=== PATIENT | female | born 1970 | race African-American/Black ===

== ENCOUNTER 2017-12-31 16:45 | Observation (INO) | payer OTHER, SELFPAY ==
[2017-12-31] MEDS ORDERED: Nitroglycerin 2% Ointment 1 INCH/1 GM Packet ONE (20:26)
[2017-12-31] MEDS ORDERED: Acetaminophen 500 MG TAB ONE (20:26)
--- NOTE | 2017-12-31 21:05 | RAD ---
RADIOGRAPH CHEST 1 VIEW: 12/31/17 HISTORY: 47-year-old female with acute chest pain. FINDINGS: There is no air space density, pulmonary edema, or pneumothorax. The lateral costophrenic angles are sharp. IMPRESSION: No acute pulmonary findings. jn [] POS: CARSON
[2017-12-31 21:12] LABS: #Basophils 0.1 thou/uL (0.0-0.2); #Eosinphils 0.1 thou/uL (0.0-0.7); #Lymphocytes 2.7 thou/uL (1.20-3.40); #Monocytes 0.5 thou/uL (0.11-0.59); %Basophils 0.7 % (0.0-1.0); %Eosinophils 1.4 % (0.0-10.0); %Lymphocytes 36.5 % (21.0-51.0); %Monocytes 7.3 % (0.0-10.0); %Neutrophils 54.1 % (42.0-75.0); Hemoglobin 12.8 g/dL (12.0-16.0); Mean Corpuscular HGB CONC 33.3 g/dL (32.0-36.0); Mean Corpuscular Hemoglobin 28.9 pg (27.0-31.0); Mean Corpuscular Volume 86.9 fl (81.0-99.0); Mean Platelet Volume 7.6 fL (7.4-10.4); Platelet Count 223 thou/uL (130-400); RBC Distribution Width 11.3 % (11.5-14.5); Red Blood Cell (RBC) Count 4.42 mill/uL (4.20-5.40); White Blood Cell (WBC) Count 7.4 thou/uL (4.8-10.8)
[2017-12-31 21:31] LABS: ALT (SGPT) 37 U/L (8-55); AST (SGOT) 24 U/L (5-34); Albumin 4.3 g/dL (3.5-5.0); Alkaline Phosphatase 73 U/L (40-150); Anion Gap 12 mmol/L (10-20); BUN (Urea Nitrogen) 12 mg/dL (7.0-18.7); Bilirubin, Total 0.4 mg/dL (0.2-1.2); CK (CPK) 152 U/L (29-168); Calc. Creatinine Clearance 0 mL/min (70-130); Calcium 9.5 mg/dL (7.8-10.44); Carbon Dioxide 25 mmol/L (22-29); Chloride 104 mmol/L (98-107); Estimated GFR-MDRD Greater than 90; Globulin 3.5 g/dL (2.4-3.5); Glucose 99 mg/dL (70-105); Lipase 22 U/L (8-78); Potassium 3.6 mmol/L (3.5-5.1); Protein, Total 7.8 g/dL (6.0-8.3); Sodium 137 mmol/L (136-145)
[2017-12-31 21:35] LABS: CKMB 1.7 ng/mL (0-6.6); Troponin I Less than 0.010 ng/mL (< 0.028)
[2017-12-31 22:27] LABS: Bilirubin Negative (Negative); Blood, Urine Trace (Negative); Clarity CLEAR (Clear); Glucose, Urine (Dipstick) Negative (Negative); Leukocyte Negative (Negative); Nitrite Negative (Negative); Protein, Urine (Dipstick) Negative (Neg-Trace); Specific Gravity, Urine 1.007 (1.002-1.036); Urobilinogen 0.2 mg/dL (0.2-1.0); pH, Urine 7.5 (5.0-9.0)
[2017-12-31 22:29] LABS: Bacteria/HPF None Seen HPF (None Seen); Hyaline Casts/LPF 0-3 HYALINE CAST LPF (0-3 Hyaline); RBC/HPF 0-3 HPF (0-3); Squamous Epithelial 0-3 HPF (0-3); WBC/HPF 0-3 HPF (0-3)
[2018-01-01] MEDS ORDERED: Acetaminophen 325 MG TAB PO PRN (00:04)
[2018-01-01] MEDS ORDERED: Ondansetron HCl/PF 4 MG/2 ML Vial IVP PRN (00:04)
[2018-01-01] MEDS ORDERED: Ondansetron ODT 4 MG TAB SL PRN (00:04)
[2018-01-01 00:40] LABS: Troponin I Less than 0.010 ng/mL (< 0.028)
[2018-01-01 00:53] VITALS: BMI 35.0
[2018-01-01 03:54] LABS: Troponin I Less than 0.010 ng/mL (< 0.028)
[2018-01-01] MEDS ORDERED: Nitroglycerin 0.4 MG TAB (25 Tab Bottle) PO PRN (08:33)
[2018-01-01] MEDS ORDERED: Topiramate 25 MG TAB PO SCH (09:00)
[2018-01-01] MEDS ORDERED: Aspirin 325 MG TAB PO SCH (09:00)
--- NOTE | 2018-01-01 09:42 | HP ---
DATE OF ADMISSION: 12/31/2017 HISTORY OF PRESENT ILLNESS: This is a 47-year-old black female with a history of uncontrolled hypert ension and migraines. She presents with a left substernal chest pain radiating to her left shoulder and left arm. This patient states she has had this off and on for the past several months. It becam e markedly more severe on Friday and has become progressively worse. On the past 2 days, this has be en associated with nausea, vomiting, and chest discomfort. She becomes diaphoretic. She was evaluat ed in the emergency room and a workup was negative. She has been followed by me over the past year a nd she has had difficult to control blood pressure. She is presently on 4 antihypertensive medicatio ns. PAST MEDICAL HISTORY: Hypertension, migraines, and PCOS. ALLERGIES: None. MEDICATIONS: Topamax 50 b.i.d., metoprolol 100 at bedtime, losartan HCT 100/25 p.o. q.a.m., amlodipi ne 10 mg at bedtime, hydralazine 25 t.i.d., Prilosec 40 daily, Flonase daily. PAST SURGICAL HISTORY: Laparoscopic cholecystectomy 05/2016. SOCIAL HISTORY: She is a nonsmoker, does not drink alcohol. 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 She is . She has no children. She admits to very poor diet. REVIEW OF SYSTEMS: As above. PHYSICAL EXAMINATION: VITAL SIGNS: Temperature 98.3, pulse 70, respirations 16, pulse ox 95, blood pressure 172/83. GENERAL: In no acute distress at this time. HEENT: Clear. HEART: Regular rate and rhythm. LUNGS: Clear. ABDOMEN: Soft. EXTREMITIES: With no edema. LABORATORY DATA: Electrolytes normal. Creatinine 0.72, BUN 12. Troponin less than 0.010 x3. BNP l ess than 10. Lipase 22. White count 10.4, H and H 12 and 38, platelet 223. Urine negative. ASSESSMENT: 1. Chest pain, substernal, radiating to left upper extremity. 2. Uncontrolled hypertension. 3. Poor diet. 4. Obesity. 5. Migraines. 6. History of polycystic ovary syndrome. PLAN: 1. Echo and Cardiolite stress test. 2. We will consult Dr. Diez. She is scheduled to see him in the next several weeks. 3. Discussed diet and exercise at length. I have been discussing this over the past year with the swapna royal.
[2018-01-01] MEDS ORDERED: Amlodipine 5 MG TAB PO SCH ×2 (09:45→21:00)
[2018-01-01] MEDS ORDERED: Amlodipine 10 MG TAB PO SCH (09:45)
--- NOTE | 2018-01-01 10:50 | CON ---
DATE OF CONSULTATION: 01/01/2018 REASON FOR CONSULTATION: Chest pain. HISTORY OF PRESENT ILLNESS: Ms. Matthews is a 47-year-old female with a history of hypertension and di abetes, admitted with chest pain. The patient states that yesterday she had the onset of pain in the middle of her chest, it was central substernal later she had some weakness and pain and tingling and numbness in the left arm. She came to the hospital. EKG did not show any ischemic changes. Tropon in levels have been negative. She has had a couple days prior to that she had a similar episode, but not as severe. PAST MEDICAL HISTORY: 1. She has a long history of hypertension at times has been difficult to control. 2. Mild diabetes. "She is on metformin only." 3. No history of smoking. FAMILY HISTORY: Negative for heart disease at a young age. MEDICATIONS: 1. Prior to admission, metformin 500 mg twice a day. 2. Topamax. 3. Omeprazole 40 mg a day. 4. Metoprolol 50 mg at bedtime. 5. Amlodipine 5 mg at bedtime. REVIEW OF SYSTEMS: CONSTITUTIONAL: No significant weight gain or loss. VISION: No changes. HEARING: No changes. PULMONARY: No cough or wheezing. GASTROINTESTINAL: No nausea, vomiting, or diarrhea. SKIN: No rashes. NEUROLOGIC: No unilateral weakness or numbness. PSYCHIATRIC: No unusual depression or anxiety. HEMATOLOGIC: No unusual bruising. GENITOURINARY: No burning with urination. Patient generalized does have daytime sleepiness and fatigue. She says her fiance told her that she snores. Her symptoms are compatible sleep apnea. PHYSICAL EXAMINATION: GENERAL: A pleasant patient, she is 5 foot 2 inches tall, 191 pounds. BMI 35. VITAL SIGNS: The blood pressure 172/83, pulse 70 regular. HEENT: Eyes: Sclerae nonicteric. Mouth: Mucous membranes moist. NECK: Supple, no lymphadenopathy. LUNGS: Clear, no wheezing, rales, or rhonchi. CARDIAC: Normal S1, normal S2. There is no murmur, rub or gallop. ABDOMEN: Obese, nontender, no hepatosplenomegaly. EXTREMITIES: Warm, dry, no clubbing, cyanosis or edema. HEMATOLOGIC: No unusual bruising. SKIN: Warm and dry. PERIPHERAL PULSES. She has strong dorsalis pedis and posterior tibial pulses bilaterally. PERTINENT LABORATORY AND X-RAY FINDINGS: All troponin levels are normal. The most recent cholestero l level is 120. Glucose level on this admission was 99. ASSESSMENT: 1. Chest pain. 2. Hypertension. 3. Diabetes on low dose metformin only. 4. History of cholecystectomy. 5. History of reflux. 6. Symptoms compatible with obstructive sleep apnea. PLAN: 1. Discussed weight loss. 2. The further risk stratify. We will reduce stress testing and then I am after reviewing the recor ds, it is unclear whether she carries a diagnosis or whether she is on the metformin for polycystic o varian disease. She does have diabetes and statin therapy would be appropriate.
[2018-01-01 15:34] VITALS: BP 168/91; TEMP 97.7
--- NOTE | 2018-01-01 15:35 | NM ---
MYOCARDIAL PERFUSION SCAN WITH SPECT IMAGIN12/31/17 HISTORY: Chest pain. The examination is performed using 28.3 millicuries of 99m technetium Sestamibi on stress. 10 millicu autumn on the resting. It shows a fairly normal distribution of the radiopharmaceutical. No signs of i schemia or scar. WALL MOTION: There is symmetric contractility to the ventricle. LEFT VENTRICULAR EJECTION FRACTION: The calculated left ventricular ejection fraction is 77%. IMPRESSION: Unremarkable myocardial perfusion scan. POS: [facility]
[2018-01-01] MEDS ORDERED: Losartan 25 MG TAB PO SCH ×2 (15:45)
[2018-01-01] MEDS ORDERED: Regadenoson 0.4 MG/5 ML SYRINGE ONE (15:59)
[2018-01-01] MEDS ORDERED: metFORMIN XR 500 MG TAB PO SCH (17:00)
[2018-01-01] MEDS ORDERED: Carvedilol 3.125 MG TAB PO SCH (17:00)
[2018-01-01] MEDS ORDERED: Metoprolol Tartrate 50 MG TAB PO SCH ×2 (21:00)
[2018-01-02] MEDS ORDERED: Aspirin 81 mg Enteric Coated Tablet PO SCH (09:00)
[2018-01-02] MEDS ORDERED: Amlodipine 10 MG TAB PO SCH (09:00)
[2018-01-02] MEDS ORDERED: Hydrochlorothiazide 25 MG TAB PO SCH (09:00)
[2018-01-02] MEDS ORDERED: Losartan 25 MG TAB PO SCH ×3 (09:00)
--- NOTE | 2018-01-02 15:11 | DIS ---
DISCHARGE DIAGNOSES: 1. Chest pain radiating to left upper extremity. 2. Uncontrolled hypertension. 3. Poor diet. 4. Obesity. 5. Migraine. 6. Polycystic ovarian syndrome. DISCHARGE MEDICATIONS: Metformin 500 b.i.d., Topamax 50 b.i.d., Prilosec 40 daily, metoprolol 50 at bedtime, amlodipine 10 mg at bedtime, losartan/HCTZ 100/25 q.a.m. BRIEF HISTORY: This is a 47-year-old white female with a long history of uncontrolled hypertension a nd noncompliance. She also admits to a very poor diet. She presents with a left substernal chest pa in radiating to her left shoulder and arm. This has been going on and off for several months. It be came markedly worse prior to admission with associated nausea, vomiting and chest discomfort. She al so became diaphoretic. Workup in the emergency room was negative. HOSPITAL COURSE: The patient underwent a Cardiolite stress test as well as an echocardiogram. The C ardiolite was negative. Echo is pending. The patient was seen by Dr. Dodd. It turns out the thelma ent had not been taking her medications as directed. She was taking some of her medications and not all of her medications. Dr. Dodd went over her medications in extreme detail. The patient underst ands the regimen and will be discharged. She will follow up in the office in the next few days for b lood pressure recheck. White count 7.4, H&H 12 and 38. Electrolytes normal. Creatinine 0.72, BUN 12. Troponin less than 0 .010 x3.
--- NOTE | 2018-01-18 00:25 | EKG ---
Test Reason : HEADACHE Blood Pressure : / mmHG Vent. Rate : 067 BPM Atrial Rate : 067 BPM P-R Int : 196 ms QRS Dur : 096 ms QT Int : 422 ms P-R-T Axes : 027 -02 -04 degrees QTc Int : 445 ms Normal sinus rhythm Voltage criteria for left ventricular hypertrophy Abnormal ECG Confirmed by LYNDA PAREDES ([id number]), television news video editor HERB MALDONADO ([id number]) on 01/18/2018 12:24:34 AM Referred By: ANDREA GONZALEZ Confirmed By:LYNDA PAREDES
== END 2018-01-01 17:19 | disposition home or self-care (01) ==
LOC: ERS 16:45 → 2SW 23:54
PROVIDERS: ADMIT Family Medicine; ATTEND Family Medicine
DX: R07.2 Precordial pain (principal); I10 Essential (primary) hypertension; E66.9 Obesity, unspecified; G43.909 Migraine, unspecified, not intractable, without status migrainosus; E28.2 Polycystic ovarian syndrome; E11.9 Type 2 diabetes mellitus without complications; R53.83 Other fatigue; K21.9 Gastro-esophageal reflux disease without esophagitis; Z91.19 Patient's noncompliance with other medical treatment and regimen; Z68.35 Body mass index [BMI] 35.0-35.9, adult; Z79.84 Long term (current) use of oral hypoglycemic drugs; Z79.899 Other long term (current) drug therapy; Z72.4 Inappropriate diet and eating habits; Z90.49 Acquired absence of other specified parts of digestive tract
CPT/HCPCS: 36415; 71045; 78452; 80053; 81003; 81015; 82553; 83690; 83880; 84484; 85025; 93005; 93017; 93306; 94760; 96360; A4216; A9500; G0378; J2785

== ENCOUNTER 2018-06-09 13:08 | Emergency (ER) | payer OTHER ==
[2018-06-09 14:04] LABS: #Basophils 0.1 thou/uL (0.0-0.2); #Eosinphils 0.1 thou/uL (0.0-0.7); #Lymphocytes 2.4 thou/uL (1.20-3.40); #Monocytes 0.6 thou/uL (0.11-0.59); #Neutrophils 3.7 thou/uL (1.40-6.50); %Basophils 1.4 % (0.0-1.0); %Eosinophils 1.6 % (0.0-10.0); %Lymphocytes 34.3 % (21.0-51.0); %Monocytes 9.2 % (0.0-10.0); %Neutrophils 53.6 % (42.0-75.0); Mean Corpuscular HGB CONC 34.1 g/dL (32.0-36.0); Mean Corpuscular Hemoglobin 28.5 pg (27.0-31.0); Mean Corpuscular Volume 83.6 fL (78.0-98.0); Mean Platelet Volume 7.6 fL (7.4-10.4); Platelet Count 190 thou/uL (130-400); RBC Distribution Width 11.2 % (11.5-14.5); White Blood Cell (WBC) Count 6.9 thou/uL (4.8-10.8)
[2018-06-09] MEDS ORDERED: Aspirin 325 MG TAB ONE (14:08)
[2018-06-09 14:19] LABS: ALT (SGPT) 52 U/L (8-55); AST (SGOT) 48 U/L (5-34); Albumin 4.2 g/dL (3.5-5.0); Alkaline Phosphatase 62 U/L (40-150); Anion Gap 12 mmol/L (10-20); BUN (Urea Nitrogen) 9 mg/dL (7.0-18.7); Bilirubin, Total 0.6 mg/dL (0.2-1.2); CKMB 2.2 ng/mL (0-6.6); Calc. Creatinine Clearance 0 mL/min (70-130); Carbon Dioxide 21 mmol/L (22-29); Chloride 107 mmol/L (98-107); Estimated GFR-MDRD Greater than 90; Globulin 4.1 g/dL (2.4-3.5); Glucose 72 mg/dL (70-105); Lipase 18 U/L (8-78); Potassium 4.2 mmol/L (3.5-5.1); Protein, Total 8.3 g/dL (6.0-8.3); Sodium 136 mmol/L (136-145); Troponin I Less than 0.010 ng/mL (< 0.028)
--- NOTE | 2018-06-09 14:46 | RAD ---
CHEST 1 VIEW: Date: 06/09/18 HISTORY: Lightheadedness. Chest pain. COMPARISON: Chest radiograph dated 05/18/16. FINDINGS: Lungs are clear. No pneumothorax or effusion. Cardiac silhouette and mediastinal contours within norm al limits. IMPRESSION: No acute intrathoracic abnormality. POS: JORGE
== END 2018-06-09 14:34 | disposition home or self-care (01) ==
LOC: SCSER 13:08
DX: I10 Essential (primary) hypertension (principal); G43.909 Migraine, unspecified, not intractable, without status migrainosus; E11.9 Type 2 diabetes mellitus without complications; Z79.899 Other long term (current) drug therapy
CPT/HCPCS: 71045; 80053; 82553; 83690; 84484; 85025; 93005

== ENCOUNTER 2018-12-10 15:34 | Outpatient (CLI) | payer OTHER | END 2018-12-10 15:35 | disposition home or self-care (01) | LOC: BICMAMMO 15:34 | PROVIDERS: ATTEND Family Medicine | DX: Z12.31 Encounter for screening mammogram for malignant neoplasm of breast (principal); Z80.3 Family history of malignant neoplasm of breast | CPT/HCPCS: 77063; 77067 ==

== ENCOUNTER 2025-06-28 10:47 | Outpatient (CLI) | payer BC | END 2025-06-28 10:48 | disposition home or self-care (01) | LOC: MAMMO 10:47 | PROVIDERS: ATTEND Family Medicine | DX: Z12.31 Encounter for screening mammogram for malignant neoplasm of breast (principal); Z80.3 Family history of malignant neoplasm of breast | CPT/HCPCS: 77063; 77067 ==

== ENCOUNTER 2025-07-26 11:34 | Emergency (ER) | payer BC ==
[2025-07-26 13:16] LABS: #Basophils 0.03 10x3/uL (0.0-0.2); #Eosinophils 0.10 10x3/uL (0.0-0.7); #Monocytes 0.56 10x3/uL (0.11-0.59); #Neutrophils 3.63 10x3/uL (1.40-6.50); %Basophils 0.5 % (0.0-1.0); %Eosinophils 1.8 % (0.0-10.0); %Lymphocytes 22.2 % (21.0-51.0); %Monocytes 10.0 % (0.0-10.0); %Neutrophils 65.0 % (42.0-75.0); Hematocrit 41.5 % (36.0-47.0); Hemoglobin 13.4 g/dL (12.0-16.0); Mean Corpuscular Hemoglobin 28.0 pg (27.0-31.0); Mean Corpuscular Volume 86.6 fL (78.0-98.0); Platelet Count 181 10x3/uL (130-400); Red Blood Cell (RBC) Count 4.79 mill/uL (4.20-5.40); White Blood Cell (WBC) Count 5.59 10x3/uL (4.8-10.8)
[2025-07-26 13:35] LABS: ALT (SGPT) 32 U/L (Less than 34); AST (SGOT) 31 U/L (11-34); Albumin 3.9 g/dL (3.1-4.5); Alkaline Phosphatase 58 U/L (40-110); Anion Gap 13 mmol/L (10-20); BUN (Urea Nitrogen) 15 mg/dL (9.8-20.1); Bilirubin, Total 0.3 mg/dL (0.3-1.2); Calc. Creatinine Clearance 0 mL/min (70-130); Calcium 9.0 mg/dL (7.8-10.44); Carbon Dioxide 22 mmol/L (22-29); Chloride 104 mmol/L (98-107); Globulin 3.3 g/dL (2.4-3.5); Glucose 289 mg/dL (70-105); Potassium 3.7 mmol/L (3.5-5.1); Sodium 135 mmol/L (136-145)
== END 2025-07-26 15:17 | disposition home or self-care (01) ==
LOC: ERS 11:34
DX: R20.0 Anesthesia of skin (principal); E11.42 Type 2 diabetes mellitus with diabetic polyneuropathy; I10 Essential (primary) hypertension; R29.701 NIHSS score 1; Z79.84 Long term (current) use of oral hypoglycemic drugs; Z79.899 Other long term (current) drug therapy
CPT/HCPCS: 80053; 85025; 99284